=== PATIENT | male | born 1995 | race Caucasian/White ===

== ENCOUNTER 2023-03-06 11:47 | Emergency (ER) | payer OTHER ==
[~2023-03-06] VITALS: Ht 185.4 cm; Wt 65.2 kg
[2023-03-06 14:06] VITALS: BP 144/80; PULSE 99; RESP 16; TEMP 98; O2SAT 99
[2023-03-06] MEDS ORDERED: CLON1TAB PO (14:52)
[2023-03-06] MEDS ORDERED: clonazePAM 0.5 MG TAB PO ONE (15:00)
== END 2023-03-06 15:59 | disposition home or self-care (01) ==
LOC: ER 11:47
DX: F41.1 Generalized anxiety disorder (principal); Z76.0 Encounter for issue of repeat prescription; Z88.8 Allergy status to other drugs, medicaments and biological substances; Z79.899 Other long term (current) drug therapy